=== PATIENT | male | born 2005 | race Caucasian/White ===

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

== ENCOUNTER 2025-03-24 13:32 | Emergency (ER) | payer MEDICAID, SELFPAY ==
[2025-03-24 13:33] VITALS: BP 118/68; PULSE 56; RESP 14; TEMP 36.7; O2SAT 100; BMI 20.9
[2025-03-24] MEDS: risperiDONE 0.25 mg Tablet PO (14:27)
[2025-03-24 14:41] LABS: Add Urine Microscopic? NO
--- NOTE | 2025-03-24 14:49 | W.ED.PSYCHS ---
HPI - Psych General: Chief Complaint: Psychiatric Symptoms Stated Complaint: mhe Time Seen by Provider: 03/24/25 13:39 History of Present Illness: 19-year-old male presents emergency room extremely anxious. Is having angry outbursts at home has previously been incarcerated states he wants to go back to long term looks that the only place that he fits in. He called 911 because he wanted them to take him back to long term. He denies use of any illicit drugs he formally did use methamphetamine but states it has been a couple of years since he used. He denies any suicidal or homicidal ideation. Did take a significant amount to redirect the patient he is not currently on any medications he is convinced he needs to call his mother and go to [facility] presented to him then does not open note probably take a few weeks to get him in to be seen he stated he was willing to wait. When asked about how that would work with his anxiety attack down to the level that he came into the emergency room how he would last the next several weeks till he got an appointment he became frustrated and wished to talk to his mother. He has not been violent or confrontational since arriving here Related Data Previous Rx's ?Medication ?Instructions ?Recorded buspirone 7.5 mg tablet 7.5 mg PO BID #60 tabs 03/24/25 Allergies Allergy/AdvReac Type Severity Reaction Status Date / Time No Known Allergies Allergy Verified 03/24/25 13:42 Review of Systems Const: Denies: fever(s) or chills Card: Denies: chest pain Resp: Denies: dyspnea GI: Denies: abdominal pain : Denies: dysuria, urinary frequency or urinary urgency Musc: Denies: neck pain or back pain Skin/Breast: Denies: rash [facility] PFS: Medical History (Updated 03/24/25 @ 15:41 by Owen Erickson DO) Cannabis abuse Nicotine dependence with current use Oppositional defiant disorder ADHD, predominantly inattentive type Social History Smoking and tobacco/nicotine status: former use of tobacco/nicotine Quit status (tobacco/nicotine): has quit using Year quit tobacco: April 2020 Alcohol intake: former Year of sobriety/quit date alcohol: 2019 Substance/Drug Use: former Date of last use: 2018 Sexually active: No Do you think of yourself as: Straight/Heterosexual Current gender identity: Male Physical Exam Const: COMMON NORMALS: no acute distress GENERAL APPEARANCE: cooperative and comfortable ORIENTATION/CONSCIOUSNESS: Yes awake, Yes oriented to person, Yes oriented to place and Yes oriented to time HENMT: COMMON NORMALS: normocephalic, atraumatic and hearing grossly normal bilaterally HEAD & SCALP: normocephalic and atraumatic Resp: COMMON NORMALS: normal respiratory effort, No retractions, No use of accessory muscles and clear to auscultation bilaterally AUSCULTATION: clear to auscultation bilaterally Cardio: COMMON NORMALS: regular rate, regular rhythm and No murmurs present (Cardio) RATE: regular rate RHYTHM: regular rhythm GI: COMMON NORMALS: Soft to palpation and No hepatosplenomegaly present AUSCULTATION: Yes normoactive bowel sounds PALPATION: Yes Soft to palpation, No Tenderness to palpation present (GI), No Guarding due to palpation present (GI) and Yes No hepatosplenomegaly present Extremity: COMMON NORMALS: normal to inspection, capillary refill normal, no clubbing, cyanosis or edema, no calf tenderness and no pedal edema Neuro: SENSORIUM/ORIENTATION: Yes oriented to person, Yes oriented to place and Yes oriented to time Skin: COMMON NORMALS: no rashes or lesions noted GENERAL SKIN EXAM: no rashes or lesions noted Course Vital Signs: Vital signs: Vital Signs Temperature 98.1 F 03/24/25 13:33 Pulse Rate 57 L 03/24/25 16:01 Respiratory Rate 14 03/24/25 13:33 Blood Pressure 144/86 03/24/25 16:01 Pulse Oximetry 99 03/24/25 16:01 [facility] - Psych Medical Decision Making I think would be appropriate for the patient to be admitted to psychiatry to treat his depression agitation and anxiety. I think he is having some issues adjusting to not being incarcerated at this point. However even after several discussions with him he did not express any suicidal or homicidal ideation. His mother was present when both tried to convince him to stay he refuses and wishes to go home. Lacking any way to place him on a hold will have to allow him to be discharged. Discharge the patient home started him on buspirone 7.5 twice daily encouraged him to follow-up with [facility]. Lab Data Laboratory Results Urine Color Yellow (Yellow) 03/24/25 14:20 Urine Appearance Clear (CLEAR) 03/24/25 14:20 Urine pH 7 (5-7) 03/24/25 14:20 Ur Specific [place] 1.008 (1.005-1.030) 03/24/25 14:20 Urine Protein Neg (Negative) 03/24/25 14:20 Urine Glucose (UA) Norm (Normal) 03/24/25 14:20 Urine Ketones Negative (Negative) 03/24/25 14:20 Urine Blood Neg (Negative) 03/24/25 14:20 Urine Nitrate Negative (Negative) 03/24/25 14:20 Urine Bilirubin Neg (Negative) 03/24/25 14:20 Urine Urobilinogen 1 mg/dL (Negative) H 03/24/25 14:20 Ur Leukocyte Esterase Negative (Negative) 03/24/25 14:20 Amorphous Sediment Not Reportable 03/24/25 14:20 Urine Opiates Screen Negative ng/mL (Negative) 03/24/25 14:20 Ur Barbiturates Screen Negative ng/mL (Negative) 03/24/25 14:20 Ur Phencyclidine Scrn Negative ng/mL (Negative) 03/24/25 14:20 Ur Amphetamines Screen Negative ng/mL (Negative) 03/24/25 14:20 U Benzodiazepines Scrn Positive ng/mL (Negative) H 03/24/25 14:20 Urine Cocaine Screen Negative ng/mL (Negative) 03/24/25 14:20 U Marijuana (THC) Screen Positive ng/mL (Negative) H 03/24/25 14:20 No radiology studies performed this visit Discharge Plan Discharge Patient Disposition: Home Clinical Impression: Acute anxiety, Depression Condition: Stable Prescriptions: New buspirone 7.5 mg tablet 7.5 mg PO BID Qty: 60 0RF Discharge Orders: Discharge ED (Routine); Ordered 03/24/25 Ordered By: Owen Erickson Referrals: Cathy Woodard MD [Family Provider, Family Practice] Discharge Diet: Usual diet Discharge Activity: Increase activity as tolerated Patient Instructions: Opioid Safety, Pain Management Activity Restrictions/Additional Instructions: Thank you for choosing [facility] for your healthcare needs today. It is very important that you follow up as instructed or that you return to the Emergency Department should you have concerns or if your condition changes or worsens in any way. You were seen in the emergency room for severe anxiety after being brought in by the ambulance. We do recommend that you be admitted to neuro psychiatry unit for your symptoms and initiation of medications. You refused admission. If your symptoms worsen or change or if you prefer to pursue recommended treatment you can return to room. Print Language: Martiniquais Coding Level of Care Code ED Cash Register Mechanic for Carmen Rodriges
[2025-03-24 14:50] LABS: Bilirubin Urine Neg (Negative); Blood Urine Neg (Negative); Glucose Urine UA Norm (Normal); Ketones Urine Negative (Negative); Nitrate Urine Negative (Negative); Protein Urine Neg (Negative); Specific Gravity, Urine 1.008 (1.005-1.030); Urine Appearance Clear (CLEAR); Urine Color Yellow (Yellow); pH Urine 7 (5-7)
[2025-03-24 14:51] LABS: Charge for UA Resulting for Rev; Leukocyte Esterase Urine Negative (Negative); Urobilinogen Urine 1 mg/dL (Negative)
[2025-03-24 14:53] LABS: Amphetamines Screen Urine Negative (Negative); Barbiturates Screen Urine Negative (Negative); Benzodiazepines Screen Urine Positive (Negative); Cocaine Screen Urine Negative (Negative); Opiate Screen Urine Negative (Negative); PCP Screen Urine Negative (Negative); THC Screen Urine Positive (Negative)
[2025-03-24 16:01] VITALS: BP 144/86; PULSE 57; O2SAT 99
== END 2025-03-24 16:04 | disposition home or self-care (01) ==
PROVIDERS: Emergency Provider Family Medicine; Family Provider Family Medicine
DX: F41.8 Other specified anxiety disorders (principal); F32.A Depression, unspecified; Z87.891 Personal history of nicotine dependence
CPT/HCPCS: 80306; 81003; 99283; J9999

== ENCOUNTER 2025-03-30 11:05 | Inpatient (IN) | payer MEDICAID, SELFPAY ==
[2025-03-30 11:06] VITALS: BP 126/82; PULSE 74; RESP 16; TEMP 36.5; O2SAT 100
[2025-03-30 11:10] VITALS: PULSE 78; O2SAT 98
--- NOTE | 2025-03-30 11:11 | W.ED.ANXIETY ---
HPI - Anxiety General: Chief Complaint: Anxiety Stated Complaint: anxiety Time Seen by Provider: 03/30/25 11:06 Source: patient and EMS Mode of arrival: EMS Limitations: no limitations History of Present Illness: 19-year-old male who states that he has been having increased anxiety states he feels like he is had a mental break over the last month he was seen here a week ago refused given to [facility] at that time was prescribed BuSpar states he only took it for couple days has been having worsening anxiety states he now wants to be admitted he denies any SI or HI. Associated symptoms: Deny chest pain, chills, fever(s), headache(s), nausea or vomiting Related Data Previous Rx's ?Medication ?Instructions ?Recorded buspirone 7.5 mg tablet 7.5 mg PO BID #60 tabs 03/24/25 Allergies Allergy/AdvReac Type Severity Reaction Status Date / Time No Known Allergies Allergy Verified 03/24/25 13:42 Review of Systems Const: Denies: fever(s), chills, body aches or change in appetite ENMT: Denies: throat pain or dental pain Card: Denies: chest pain Resp: Denies: dyspnea GI: Denies: abdominal pain, nausea, vomiting or diarrhea Musc: Denies: neck pain or back pain Skin/Breast: Denies: rash Neuro: Denies: headache(s) Psych: Reports: anxiety; Denies: suicidal ideation [facility] ED PFSH: Medical History (Updated 03/30/25 @ 12:04 by Trav Luciano MD) Cannabis abuse Nicotine dependence with current use Oppositional defiant disorder ADHD, predominantly inattentive type Social History Smoking and tobacco/nicotine status: former use of tobacco/nicotine Quit status (tobacco/nicotine): has quit using Year quit tobacco: April 2020 Alcohol intake: former Year of sobriety/quit date alcohol: 2018 Substance/Drug Use: former Date of last use: 2018 Sexually active: No Do you think of yourself as: Straight/Heterosexual Current gender identity: Male Physical Exam Const: COMMON NORMALS: no acute distress, patient oriented x3 and healthy appearing HENMT: COMMON NORMALS: normocephalic and atraumatic HEAD & SCALP: normocephalic and atraumatic Eye: COMMON NORMALS: conjunctivae normal CONJUNCTIVA: Yes conjunctivae normal Neck/C-Spine: COMMON NORMALS: full ROM and supple Chest: COMMONS NORMALS: normal inspection of the chest Resp: COMMON NORMALS: normal respiratory effort Cardio: COMMON NORMALS: regular rate RATE: regular rate Extremity: COMMON NORMALS: normal to inspection and full ROM Neuro: COMMON NORMALS: patient oriented x3, moves all extremities and no focal motor deficits Psych: COMMON NORMALS: mental status grossly normal, Normal thought process present and cooperative THOUGHT PROCESS: Normal thought process present Skin: COMMON NORMALS: no rashes or lesions noted and no wounds GENERAL SKIN EXAM: no rashes or lesions noted Course Vital Signs: Vital signs: Vital Signs Temperature 97.7 F 03/30/25 11:06 Pulse Rate 85 03/30/25 11:43 Respiratory Rate 16 03/30/25 11:06 Blood Pressure 126/82 03/30/25 11:06 Pulse Oximetry 98 03/30/25 11:43 MDM - Anxiety Medical Decision Making Patient presents here with anxiety he is well-appearing here medically cleared he voluntarily wants to go to the psych amaya will admit to [facility] at this time Medical Records I reviewed the patient's medical records. Lab Data I reviewed the patient's lab results. 03/30/25 11:18 03/30/25 11:18 Laboratory Results WBC 5.21 10^3/uL (3.29-11.43) 03/30/25 11:18 RBC 4.96 10^6/uL (3.85-5.65) 03/30/25 11:18 Hgb 15.30 g/dL (11.27-16.99) 03/30/25 11:18 Hct 46.0 % (37-53) 03/30/25 11:18 MCV 92.7 fl (82-101) 03/30/25 11:18 MCH 30.8 pg (27-33) 03/30/25 11:18 MCHC 33.3 g/dL (30-55) 03/30/25 11:18 RDW 12.4 % (12.1-15.1) 03/30/25 11:18 Plt Count 172 10^3/cmm (157-399) 03/30/25 11:18 MPV 11.2 fL (7.4-10.4) H 03/30/25 11:18 Neut % (Auto) 65.0 % 03/30/25 11:18 Lymph % (Auto) 24.2 % 03/30/25 11:18 [place] % (Auto) 7.3 % 03/30/25 11:18 Eos % (Auto) 2.7 % 03/30/25 11:18 Baso % (Auto) 0.6 % 03/30/25 11:18 Neut # (Auto) 3.39 10^3/uL (1.8-7.7) 03/30/25 11:18 Lymph # (Auto) 1.3 10^3/uL (0.8-4.8) 03/30/25 11:18 [place] # (Auto) 0.4 10^3/uL (0.2-0.9) 03/30/25 11:18 Eos # (Auto) 0.1 10^3/uL (0.0-0.8) 03/30/25 11:18 Baso # (Auto) 0.0 10^3/uL (0.0-0.1) 03/30/25 11:18 Nucleated RBC % (auto) 0 % 03/30/25 11:18 Nucleated RBCs # 0.0 /100WBC 03/30/25 11:18 Sodium 138 mmol/L (136-145) 03/30/25 11:18 Potassium 4.3 mmol/L (3.5-5.1) 03/30/25 11:18 Chloride 104 mmol/L (98-107) 03/30/25 11:18 Carbon Dioxide 22 mmol/L (22-29) 03/30/25 11:18 Anion Gap 16.3 (5-19) 03/30/25 11:18 BUN 8 mg/dL (6-20) 03/30/25 11:18 Creatinine 0.8 mg/dL (0.7-1.2) 03/30/25 11:18 GFR Calculation 122.0 mL/min (90-130) 03/30/25 11:18 Glucose 99 mg/dL (65-115) 03/30/25 11:18 Calculated Osmolality 284 mOsm/kg (285-295) L 03/30/25 11:18 Calcium 9.8 mg/dL (8.5-10.5) 03/30/25 11:18 Total Bilirubin 0.5 mg/dL (0.15-1.2) 03/30/25 11:18 AST 18 U/L (0-40) 03/30/25 11:18 ALT < 5 U/L (0-41) 03/30/25 11:18 Alkaline Phosphatase 102 U/L (40-130) 03/30/25 11:18 Total Protein 7.7 g/dL (6.6-8.7) 03/30/25 11:18 Albumin 4.8 g/dL (3.5-5.2) 03/30/25 11:18 Globulin 2.9 g/dL (1.3-4.6) 03/30/25 11:18 Salicylates < 0.3 mg/dL (3-10) L 03/30/25 11:18 Acetaminophen < 5.0 ug/mL (10-30) L 03/30/25 11:18 Ethyl Alcohol < 10 mg/dL (0-10) 03/30/25 11:18 No radiology studies performed this visit Discharge Plan Discharge Patient Disposition: Admitted As Inpatient Admit Provider: Brigido Rolle Clinical Impression: Acute anxiety Condition: Stable Coding Level of Care Code ED Race Relations Professor for Carmen Rodriges
[2025-03-30] MEDS: LORazepam 1 mg Tablet PO (11:14)
--- NOTE | 2025-03-30 11:15 | PC.NURSE ---
pt belongings removed by security, placed in belonging bag(s) outside room in locker. pt performed shaking maneuver of boxers, no concealed items noted.
--- NOTE | 2025-03-30 11:19 | PC.NURSE ---
provided pt with socks, no further needs stated at this time.
[2025-03-30 11:23] LABS: Basophils % 0.6 %; Eosinophils # 0.1 10^3/uL (0.0-0.8); Eosinophils % 2.7 %; Lymphocytes # 1.3 10^3/uL (0.8-4.8); Lymphocytes % 24.2 %; Mean Corpuscular HGB Conc 33.3 g/dL (30-55); Mean Corpuscular Hemoglobin 30.8 pg (27-33); Mean Corpuscular Volume 92.7 fl (82-101); Mean Platelet Volume 11.2 fL (7.4-10.4); Monocytes # 0.4 10^3/uL (0.2-0.9); Monocytes % 7.3 %; Neutrophils # 3.39 10^3/uL (1.8-7.7); Nucleated Red Blood Cells % 0 %; Platelet Count 172 10^3/cmm (157-399); Red Blood Count 4.96 10^6/uL (3.85-5.65); Red Cell Distribution Width 12.4 % (12.1-15.1); White Blood Count 5.21 10^3/uL (3.29-11.43)
[2025-03-30 11:41] LABS: Alanine Aminotransferase < 5 U/L (0-41); Albumin Level 4.8 g/dL (3.5-5.2); Alkaline Phosphatase 102 U/L (40-130); Anion Gap 16.3 (5-19); Aspartate Amino Transferase 18 U/L (0-40); Blood Urea Nitrogen 8 mg/dL (6-20); Calcium 9.8 mg/dL (8.5-10.5); Carbon Dioxide 22 mmol/L (22-29); Chloride 104 mmol/L (98-107); Creatinine Clr Calc Pharmacy 145.8188; Globulin 2.9 g/dL (1.3-4.6); Glucose 99 mg/dL (65-115); Osmolality Calculated 284 mOsm/kg (285-295); Potassium 4.3 mmol/L (3.5-5.1); Sodium 138 mmol/L (136-145); Total Bilirubin 0.5 mg/dL (0.15-1.2); Total Protein 7.7 g/dL (6.6-8.7)
[2025-03-30 11:43] VITALS: PULSE 85; O2SAT 98
[2025-03-30 11:47] LABS: Acetaminophen < 5.0 ug/mL (10-30); Alcohol Level < 10 mg/dL (0-10); Salicylate < 0.3 mg/dL (3-10)
[2025-03-30 11:56] VITALS: BP 130/76; PULSE 90; RESP 16; TEMP 36.6; O2SAT 97
[2025-03-30 13:00] LABS: Amphetamines Screen Urine Negative (Negative); Barbiturates Screen Urine Negative (Negative); Benzodiazepines Screen Urine Negative (Negative); Cocaine Screen Urine Negative (Negative); Opiate Screen Urine Negative (Negative); PCP Screen Urine Negative (Negative); THC Screen Urine Positive (Negative)
[2025-03-30 14:00] VITALS: BP 133/66; PULSE 95; RESP 16; TEMP 36.9; O2SAT 98
[2025-03-30] MEDS: nicotine 2 mg Gum BUCCAL (17:41)
--- NOTE | 2025-03-30 18:39 | PC.NURSE ---
Patient reports that his home medications do not work: buspirone and sertraline. Patient also said that hydroxyzine helps alleviate anxiety. Patient says that trazodone gives him RLS. Patient says that, about one month ago, his anxiety became severe. Patient said that his intake of marijuana also increased about one month ago. Patient has been weaning himself off of marijuana for about three weeks. Yesterday, patient got rid of all of his marijuana and paraphernalia. Patient said that he attempted suicide when he was 14. Patient denies suicidal ideation currently. Denies HI and AVH as well. Patient says that his two main issues are lack of sleep and anxiety.
[2025-03-30 19:36] VITALS: BP 133/69; PULSE 95; RESP 17; TEMP 36.8; O2SAT 96
[2025-03-30] MEDS: hyDROXYzine 25 mg Capsule 50 MG PO (20:03)
[2025-03-30] MEDS: OLANZapine 5 mg ODT PO (20:04)
[2025-03-30] MEDS: ondansetron 4 MG Tablet PO (20:36)
[2025-03-31] MEDS: hyDROXYzine 25 mg Capsule 50 MG PO ×2 (02:41→08:07)
[2025-03-31] MEDS: OLANZapine 5 mg ODT PO ×2 (02:41→21:36)
[2025-03-31 06:00] VITALS: BP 104/58; PULSE 70; RESP 16; TEMP 36.7; O2SAT 98
[2025-03-31] MEDS: ondansetron 4 MG Tablet PO (08:07)
[2025-03-31] MEDS: sertraline 50 mg Tablet PO (08:07)
[2025-03-31] MEDS: ARIPiprazole 10 mg Tablet 5 MG PO (08:07)
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
[2025-03-31 14:00] VITALS: BP 128/82; PULSE 78; RESP 16; TEMP 36.9; O2SAT 96
[2025-03-31] MEDS: nicotine 2 mg Gum BUCCAL (17:55)
[2025-03-31 19:49] VITALS: BP 119/78; PULSE 86; RESP 18; TEMP 36.9; O2SAT 98
[2025-03-31] MEDS: quetiapine 100 mg Tablet PO (20:13)
[2025-04-01 05:36] VITALS: BP 116/77; PULSE 69; RESP 16; TEMP 36.5; O2SAT 97
[2025-04-01] MEDS: sertraline 50 mg Tablet PO (08:10)
[2025-04-01] MEDS: nicotine 2 mg Gum BUCCAL (12:25)
[2025-04-01 12:28] VITALS: BP 141/99; PULSE 69; RESP 18; TEMP 36.6; O2SAT 98
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
[2025-04-01 13:43] VITALS: BP 141/90; PULSE 69; RESP 18; TEMP 36.6; O2SAT 98
== END 2025-04-01 14:12 | disposition home or self-care (01) | DRG 885 ==
LOC: ER 11:29 → NP 11:36
PROVIDERS: Admitting Provider Psychiatry & Neurology Psychiatry; Emergency Provider Emergency Medicine; Family Provider Family Medicine; Visit Provider Psychiatry & Neurology Psychiatry
DX: F31.9 Bipolar disorder, unspecified (principal); F90.0 Attention-deficit hyperactivity disorder, predominantly inattentive type; F41.9 Anxiety disorder, unspecified; F12.10 Cannabis abuse, uncomplicated; F91.3 Oppositional defiant disorder; Z87.891 Personal history of nicotine dependence
CPT/HCPCS: 80053; 80306; 80307; 85025; 97150; 97165; 99285; J9999; Q0162